=== PATIENT | female | born 1945 | race Caucasian/White ===

== ENCOUNTER 2016-11-22 14:23 | Emergency (ER) | payer OTHER ==
[2016-11-22] MEDS ORDERED: ARICEPT10 M1 PO (14:25)
[2016-11-22] MEDS ORDERED: ASPIRIN81 M1 PO (14:25)
[2016-11-22] MEDS ORDERED: FERROUS SULFAT325 MG PO (14:26)
[2016-11-22] MEDS ORDERED: MEGACE 40400 MG/10 PO (14:27)
[2016-11-22] MEDS ORDERED: LAMICTAL100 MG PO (14:27)
[2016-11-22] MEDS ORDERED: ABILIFY5 MG PO (14:31)
[2016-11-22] MEDS ORDERED: OMEPRAZOLE40 MG PO (14:31)
[2016-11-22] MEDS ORDERED: NAMENDA XR1 EACH PO (14:32)
[2016-11-22] MEDS ORDERED: REMERON15 M2 PO (14:32)
[2016-11-22] MEDS ORDERED: MULTIPLE VITAMI1 TA3 PO (14:33)
[2016-11-22] MEDS ORDERED: VENLAFAXINE HC100 MG PO (14:33)
[2016-11-22] MEDS ORDERED: MAPAP325 MG PO (14:34)
[2016-11-22] MEDS ORDERED: VITAMIN D34000 UNIT PO (14:34)
[2016-11-22 15:12] LABS: BASO % 0.4 % (0.0-1.0); EOS # 0.1 10*3/uL (0.0-0.4); EOS % 1.2 % (1.0-4.0); LYMPH # 4.1 10*3/uL (1.3-4.4); LYMPH % 44.2 % (27.0-41.0); MEAN CELL VOLUME 89.8 fl (81.0-99.0); MEAN CORPUSCULAR HGB 29.1 pg (27.0-31.0); MEAN CORPUSCULAR HGB CONC 32.4 g/dl (33.0-37.0); MEAN PLATELET VOLUME 9.6 fl (9.6-12.3); MONO # 0.6 10*3/uL (0.1-1.0); MONO % 6.4 % (3.0-9.0); NEUT # 4.4 10*3/uL (2.3-7.9); NEUT % 47.6 % (47.0-73.0); PLATELET COUNT AUTOMATED 302 10*3/uL (130-400); RED BLOOD COUNT 4.12 10*6/uL (4.10-5.10); RED CELL DISTRI WIDTH 14.5 % (0-14.5); WHITE BLOOD COUNT 9.2 10*3/uL (4.8-10.8)
[2016-11-22 15:29] LABS: MAGNESIUM 2.3 mg/dL (1.5-2.1)
[2016-11-22 15:31] LABS: TROPONIN I < 0.015 ng/ml (<0.5)
[2016-11-22 16:21] LABS: BILIRUBIN NEGATIVE (NEGATIVE); BLOOD 1+ (NEGATIVE); CLARITY CLEAR (CLEAR); COLOR YELLOW (YELLOW); GLUCOSE NEGATIVE (NEGATIVE); KETONE NEGATIVE (NEGATIVE); LEUKO ESTERASE NEGATIVE (NEGATIVE); NITRITE NEGATIVE (NEGATIVE); PH 5.5 (5.0-9.0); PROTEIN NEGATIVE (NEGATIVE); UROBILINOGEN 0.2 E.U./dl (0.2-1.0)
[2016-11-22 16:30] LABS: URINE AMPHETAMINES < 1000 (1000ng/ml); URINE BARBITURATES < 200 (200ng/ml); URINE COCAINE < 300 (300ng/ml)
[2016-11-22 16:33] LABS: URINE REFLEX COMMENT YES (NO)
== END 2016-11-22 21:12 | disposition home or self-care (01) ==
LOC: ED 14:23
PROVIDERS: Emergency Medicine
DX: F03.91 Unspecified dementia, unspecified severity, with behavioral disturbance (principal); F31.81 Bipolar II disorder; Z79.82 Long term (current) use of aspirin; Z79.899 Other long term (current) drug therapy